=== PATIENT | female | born 1990 | race Caucasian/White ===

== ENCOUNTER 2022-07-17 21:54 | Emergency (ER) | payer MEDICAID ==
[~2022-07-17] VITALS: Ht 165.1 cm; Wt 95.0 kg
[2022-07-17] MEDS ORDERED: KETOROLAC 30MG/ML VIAL IV STA (22:42)
[2022-07-17] MEDS ORDERED: SODIUM CHLORIDE 0.9% 1,000 ML IV ONE (22:45)
[2022-07-17] MEDS ORDERED: BACITRACIN ZINC OINT UDPKT TOP ONE (23:00)
[2022-07-17] MEDS ORDERED: LIDOCAINE HCL/EPINEPHRINE 1%-EPI 1:100,000 20 ML VIAL INFIL ONE (23:00)
[2022-07-17 23:21] LABS: HEMATOCRIT. 37.7 % (36.0-48.0); HEMOGLOBIN. 12.7 g/dL (12.0-16.0); MEAN CORPUSCULAR HEMOGLOBIN 30.1 pg (28.0-32.0); MEAN CORPUSCULAR VOLUME 89.7 fL (81.0-99.0); MEAN PLATELET VOLUME 8.7 fl (7.4-10.4); PLATELET 324 x1000/uL (130-400); RED CELL DISTRIBUTION WIDTH 12.8 % (11.6-14.6)
[2022-07-17] MEDS ORDERED: LIDOCAINE HCL 1%/EPI 1:200,000 30 ML VIAL IJ NR (23:27)
[2022-07-17 23:30] LABS: CHLORIDE 105 mEq/L (98-107)
[2022-07-17 23:56] LABS: PLATELET ESTIMATE NORMAL
[2022-07-18] LABS: HCG SCREEN POSITIVE
[2022-07-18 03:00] VITALS: BP 113/64
[2022-07-18] MEDS ORDERED: CEFTRIAXONE 1GM PREMIX 50 ML IV ONE (03:00)
[2022-07-18] MEDS ORDERED: ACETAMINOPHEN 325MG TABLET PO STA (03:01)
[2022-07-18] MEDS ORDERED: ACET-2708 PO (03:11)
[2022-07-18] MEDS ORDERED: CLIN-194 PO (03:11)
[2022-07-18] MEDS ORDERED: AMOX1TAB16 PO (03:11)
== END 2022-07-18 03:34 | disposition home or self-care (01) ==
LOC: ER 21:54
DX: O20.0 Threatened abortion (principal); L02.31 Cutaneous abscess of buttock; Z3A.01 Less than 8 weeks gestation of pregnancy
CPT/HCPCS: 36415; 76801; 76817; 80053; 83615; 84145; 84702; 84703; 85025; 86850; 86900; 86901; 96361; 96365; 96375; 99285; J7030; J3490

== ENCOUNTER 2022-07-20 09:12 | Emergency (ER) | payer MEDICAID ==
[~2022-07-20] VITALS: Ht 165.1 cm; Wt 100.0 kg
[~2022-07-20 09:12] MED LIST: ACET-2708 PO; AMOX1TAB16 PO; CLIN-194 PO
[2022-07-20 09:18] VITALS: BP 143/80
== END 2022-07-20 14:06 | disposition home or self-care (01) ==
LOC: ER 09:12
DX: N93.9 Abnormal uterine and vaginal bleeding, unspecified (principal)
CPT/HCPCS: 36415; 76801; 84702; 99284

== ENCOUNTER 2022-07-22 12:57 | Emergency (ER) | payer MEDICAID ==
[~2022-07-22] VITALS: Ht 165.1 cm; Wt 96.0 kg
[2022-07-22 14:22] VITALS: BP 135/76
== END 2022-07-22 14:22 ==
LOC: ER 12:57
DX: L02.31 Cutaneous abscess of buttock (principal); Z48.00 Encounter for change or removal of nonsurgical wound dressing
CPT/HCPCS: 36415; 84702; 99283